=== PATIENT | female | born 1960 | race Caucasian/White ===

== ENCOUNTER → 2016-12-14 | Outpatient (CLI) | payer OTHER ==
[~2016-12-14] MED LIST: PRED20TA PO; TR1C15 TOP; TRIA80CR3 TOP
[2016-12-14 10:55] VITALS: BP 143/79
--- NOTE | 2016-12-14 10:55 | Urgent Care T Sheet Gen (E) ---
Intake General Temperature (Fahrenheit): 98.2 Pulse: 61 Blood Pressure Systolic: 143 Blood Pressure Diastolic: 79 Respirations: 18 SPO2: 97 Description of Symptoms Patient presents with a rash along the torso x 3 days. States the rash is red bumps that were first noticed on Tuesday. Patient states she was outside working in the yard. Doesn't recall getting into anything. States the rash hasn't worsened, it just hasn't gotten better. No drainage or warmth. States the rash doesn't itch. No meds. History of Present Illness Home Meds Active Scripts Triamcinolone Acetonide (Kenalog 0.1% Cream)80 Gm Cream..g.1 Gm TOP QID #1 TUBE Apply topically to affected area QID until rash is gone Prov:SEEMA CARTER 12/14/16 Triamcinolone Acet (Kenalog 0.1% Cream)15 Gm Cr15 Gm TOP TID #15 TUBE Apply to affected area TID prn Prov:CARLENE DAVIS 03/09/16 Prednisone 20 Mg Tablet2 Tab PO DAILY Inflammation #15 TAB Ref 0 Take 2 tabs po qd x 5 days, then take 1 tab po qd x 4 days, then 1/2 tab po qd x 2 days. Prov:CARLENE DAVIS 03/09/16 Respiratory Constitutional Symptoms: No syptoms reported EENTM: No symptoms reported Respiratory: No symptoms reported Cardiovascular: No symptoms reported Gastrointestinal/Abdominal: No symptoms reported Skin: Rash All Other Systems Reviewed Remaining Systems: All other systems reviewed with negative findings Past Kfrbuse-Igqwsm-Wetcko Hx Patient's Social History Alcohol Use: Denies Use Smoking Status: Never smoker Physical Exam Physical Exam General Appearance: WD/WN No apparent distress Skin Exam: Rash (red, papular rash noted along the torso, extending from the bra line to the waist line. papules are blanchable, not warm, no drainage) Departure Urgent Care Impression Impression: Primary Impression: Rash Departure Disposition: 01 HOME OR SELF-CARE Condition: Stable Referrals: BARRETT AMAYA MD (PCP) Additional Instructions: The rash is very non specific. It's odd that it doesn't itch. I do believe it is some sort of histamine reaction though. I have started her on Triamcinolone ointment and suggested she take either Claritin or Zyrtec daily. Could use Benadryl but that'll make her drowsy Return as needed Patient understands DC instructions. All questions were answered. Scripts Triamcinolone Acetonide (Kenalog 0.1% Cream)80 Gm Cream..g.1 Gm TOP QID #1 TUBE Apply topically to affected area QID until rash is gone Prov:SEEMA CARTER 12/14/16 End of report . SEEMA CARTER December 14, 2016 10:46
== END ==
LOC: MHUC 10:27
PROVIDERS: ATTEND Physician Assistant
DX: R21 Rash and other nonspecific skin eruption (principal)
CPT/HCPCS: 99212